=== PATIENT | female | born 1980 | race Two or more races ===

== ENCOUNTER 2024-07-10 12:27 | Emergency (ER) | payer OTHER ==
[~2024-07-10] VITALS: Ht 154.9 cm; Wt 104.8 kg
[2024-07-10] MEDS ORDERED: LOSARTAN POTASS50 MG (12:53)
[2024-07-10] MEDS ORDERED: HYDRODIURIL12.5 MG (12:54)
[2024-07-10] MEDS ORDERED: HYDROCHLOROTHIA25 MG (12:54)
[2024-07-10] MEDS ORDERED: CHLORTHALIDONE25 MG (12:55)
[2024-07-10 14:28] LABS: HEMATOCRIT 44.4 % (36.0-45.00); HEMOGLOBIN 15.2 g/dL (12.0-15.00); MEAN CELL VOLUME 87.1 fL (80.00-100.00); MEAN CORPUSCULAR HEMOGLOBIN 29.8 pg (27.00-32.0); MEAN CORPUSCULAR HGB CONC 34.2 g/dl (32.0-36.0); PLATELET COUNT 278 K/uL (150-450); RED CELL DISTRIBUTION WIDTH 13.3 % (11.5-14.5)
[2024-07-10 14:50] LABS: BILIRUBIN TOTAL 0.42 mg/dL (0.3-1.2); CALCIUM 9.5 mg/dL (8.5-10.1); CREATININE SERUM 0.88 mg/dL (0.55-1.02); GFR 69.18; GLOBULINA 4.5 G/DL (2.4-3.5); TOTAL PROTEIN 8.5 gm/dL (6.4-8.2)
[2024-07-10 15:02] LABS: POTASSIUM 2.96 mEq/L (3.5-5.1)
[2024-07-10] MEDS ORDERED: POTASSIUM BICARBONATE/CIT AC 25 MEQ TABLET.EFF PO ONE (15:15)
[2024-07-10] MEDS ORDERED: BUTALB/ACETAMINOPHEN/CAFFEINE 1 TAB TABLET PO ONE ×2 (15:15→16:37)
[2024-07-10] MEDS ORDERED: POTASSIUM BICARBONATE/CIT AC 25 MEQ TABLET.EFF PO STA (16:29)
[2024-07-10] MEDS ORDERED: ACETAMINOPHEN 500 MG GEL..CAP PO ONE (16:30)
[2024-07-10] MEDS ORDERED: BUTALB/ACETAMINOPHEN/CAFFEINE 1 TAB TABLET PO STA (16:30)
[2024-07-10 18:47] LABS: CALCIUM 9.7 mg/dL (8.5-10.1); CREATININE SERUM 0.94 mg/dL (0.55-1.02); GFR 64.11; POTASSIUM 3.53 mEq/L (3.5-5.1)
== END 2024-07-10 19:18 | disposition home or self-care (01) ==
LOC: ER 12:28
PROVIDERS: General Practice
DX: E87.6 Hypokalemia (principal); J40 Bronchitis, not specified as acute or chronic; I10 Essential (primary) hypertension; Z20.822 Contact with and (suspected) exposure to COVID-19; Z88.6 Allergy status to analgesic agent; Z88.0 Allergy status to penicillin; Z88.2 Allergy status to sulfonamides; Z87.09 Personal history of other diseases of the respiratory system